=== PATIENT | female | born 1975 | race Caucasian/White ===

== ENCOUNTER 2020-08-16 19:01 | Emergency (ER) | payer OTHER, SELFPAY ==
[2020-08-16] MEDS ORDERED: Lidocaine 1% w/Epinephrine 1:100K 20 ML VIAL ONE (20:37)
[2020-08-16] MEDS ORDERED: Boostrix 0.5 ML (Tdap) VIAL ONE (20:58)
== END 2020-08-16 22:30 | disposition home or self-care (01) ==
LOC: ERS 19:01
DX: S41.111A Laceration without foreign body of right upper arm, initial encounter (principal); X58.XXXA Exposure to other specified factors, initial encounter
CPT/HCPCS: 12002; 90471; 90715

== ENCOUNTER 2020-08-24 16:14 | Emergency (ER) | payer OTHER | END 2020-08-24 17:12 | disposition home or self-care (01) | LOC: ERS 16:14 | DX: T81.33XA Disruption of traumatic injury wound repair, initial encounter (principal) | CPT/HCPCS: 99282 ==